=== PATIENT | male | born 1955 | race Caucasian/White ===

== ENCOUNTER 2021-01-22 11:07 | Emergency (ER) | payer MEDICARE, OTHER ==
[~2021-01-22] VITALS: Ht 182.9 cm; Wt 96.2 kg
[2021-01-22] MEDS ORDERED: AUGMENTIN 875-1 EACH PO (11:24)
[2021-01-22 11:42] VITALS: BP 140/70
== END 2021-01-22 11:43 | disposition home or self-care (01) ==
LOC: M.ERS 11:07
DX: S81.851A Open bite, right lower leg, initial encounter (principal); W54.0XXA Bitten by dog, initial encounter; Y93.89 Activity, other specified; Y92.89 Other specified places as the place of occurrence of the external cause; Y99.8 Other external cause status